=== PATIENT | male | born 1935 | race Caucasian/White ===

== ENCOUNTER 2021-01-28 10:49 | Inpatient (IN) | payer MEDICARE, BC ==
[~2021-01-28 10:49] MED LIST: Iopamidol-370 76% 500 ML 1 ML ONE
[2021-01-28] MEDS ORDERED: Cefepime 2 GM VIAL ONE (11:31)
[2021-01-28] MEDS ORDERED: Vancomycin 1 GM/200 ML BAG ONE (11:32)
[2021-01-28 11:42] LABS: ALT (SGPT) 22 U/L (8-55); AST (SGOT) 18 U/L (5-34); Albumin 4.2 g/dL (3.4-4.8); Alkaline Phosphatase 86 U/L (40-110); Anion Gap 19 mmol/L (10-20); BUN (Urea Nitrogen) 20 mg/dL (8.4-25.7); Bilirubin, Total 0.6 mg/dL (0.2-1.2); Calc. Creatinine Clearance 0 mL/min (70-130); Calcium 9.5 mg/dL (7.8-10.44); Carbon Dioxide 26 mmol/L (23-31); Chloride 101 mmol/L (98-107); Globulin 2.8 g/dL (2.4-3.5); Glucose 133 mg/dL (83-110); Sodium 142 mmol/L (136-145)
[2021-01-28 11:45] LABS: Band 21 % (5-11); Hemoglobin 12.9 g/dL (14.0-18.0); Lymphocytes 10 % (21-51); MDiff Complete? YES; Macrocytosis SLIGHT = 6-15 cells (100X) (0-5/hpf); Mean Corpuscular Hemoglobin 35.6 pg (27.0-31.0); Mean Platelet Volume 9.4 fL (7.4-10.4); Monocytes 6 % (0-10); Neutrophil 63 % (42-75); Platelet Count 140 thou/uL (130-400); RBC Distribution Width 13.9 % (11.5-14.5); Red Blood Cell (RBC) Count 3.61 mill/uL (4.70-6.10); White Blood Cell (WBC) Count 27.4 thou/uL (4.8-10.8)
[2021-01-28 11:46] LABS: Actual Bicarbonate (HCO3v) 29 mEq/L (22-28); Analyzer IN Cardio ER; Base Excess 3.3 mEq/L (-2.0 to +3.0); Calcium, Ionized (venous) 1.12 mmol/L (1.16-1.32); Chloride (VBG) 102 mmol/L (98-106); Hemoglobin (Hb) 12.8 g/dL (12.6-17.4); Potassium (VBG) 3.98 mmol/L (3.70-5.30); Sodium 140.5 mmol/L (133-146)
[2021-01-28] MEDS ORDERED: Ondansetron PF 4 MG/2 ML Vial ONE (11:49)
[2021-01-28] MEDS ORDERED: Aspirin Chewable 81 MG TAB ONE (11:49)
[2021-01-28 12:04] LABS: CKMB 3.3 ng/mL (0-6.6)
[2021-01-28 12:34] LABS: SARS-CoV-2 NAA Rapid Test Not Detected (NotDetected)
[2021-01-28 12:57] LABS: Actual Bicarbonate (HCO3v) 22 mEq/L (22-28); Analyzer IN Cardio ER; Base Excess -2.1 mEq/L (-2.0 to +3.0); Chloride (VBG) 106 mmol/L (98-106); Hemoglobin (Hb) 11.8 g/dL (12.6-17.4); Sodium 139.2 mmol/L (133-146)
[2021-01-28] MEDS ORDERED: Acetaminophen 325 MG TAB ONE (13:17)
[2021-01-28 14:56] LABS: Lactic Acid 2.6 mmol/L (0.5-2.2)
[2021-01-28 15:33] LABS: Bilirubin Negative (Negative); Blood, Urine Negative (Negative); Clarity Clear (Clear); Glucose, Urine (Dipstick) Normal (Negative); Ketone, Urine Negative (Negative); Leukocyte Negative Leu/uL (Negative); Nitrite Negative (Negative); Protein, Urine (Dipstick) Negative (Neg-Trace); Specific Gravity, Urine 1.043 (1.002-1.036); Urobilinogen Normal mg/dL (Less than 2)
[2021-01-28] MEDS ORDERED: Acetaminophen 325 MG TAB PO PRN (15:55)
[2021-01-28] MEDS ORDERED: Albuterol Sulfate 2.5 mg/3 ml Neb NEB PRN (15:55)
[2021-01-28] MEDS ORDERED: Ondansetron PF 4 MG/2 ML Vial IVP PRN (15:55)
[2021-01-28] MEDS ORDERED: Senokot S 8.6-50 MG TAB PO PRN (15:55)
[2021-01-28 17:05] LABS: Troponin I 0.185 ng/mL (< 0.028)
[2021-01-28] MEDS ORDERED: Vancomycin HCl 750 MG in Sodium Chloride 0.9% 250 ML 250 ML IVPB SCH (19:45)
[2021-01-28] MEDS: Sodium Chloride 0.9% 1,000 ML IV SCH (20:21)
[2021-01-28] MEDS: methylPREDNISolone Sod Succ 40 MG VIAL IVP SCH (20:35)
[2021-01-28] MEDS: Pregabalin 75 MG CAP PO SCH (20:35)
[2021-01-28 20:54] LABS: Troponin I 0.149 ng/mL (< 0.028)
[2021-01-28 22:09] VITALS: BMI 23.2
[2021-01-28] MEDS: Cefepime 2 GM in Sodium Chloride 0.9% 100 ML IVPB SCH (23:25)
[2021-01-29] MEDS: methylPREDNISolone Sod Succ 40 MG VIAL IVP SCH ×4 (01:10→21:24)
[2021-01-29 04:14] LABS: Lactic Acid 2.6 mmol/L (0.5-2.2)
[2021-01-29 04:17] LABS: Anion Gap 14 mmol/L (10-20); BUN (Urea Nitrogen) 17 mg/dL (8.4-25.7); Calc. Creatinine Clearance 70 mL/min (70-130); Calcium 8.4 mg/dL (7.8-10.44); Carbon Dioxide 22 mmol/L (23-31); Chloride 107 mmol/L (98-107); Glucose 187 mg/dL (83-110); Potassium 4.6 mmol/L (3.5-5.1); Sodium 138 mmol/L (136-145)
[2021-01-29] MEDS: Sodium Chloride 0.9% 1,000 ML IV SCH (06:04)
[2021-01-29] MEDS: Arformoterol 15 MCG/2 ML NEB NEB SCH ×3 (06:04→18:57)
[2021-01-29 06:40] LABS: Hemoglobin 9.7 g/dL (14.0-18.0); Mean Corpuscular Hemoglobin 36.2 pg (27.0-31.0); Mean Platelet Volume 9.7 fL (7.4-10.4); Platelet Count 88 thou/uL (130-400); RBC Distribution Width 13.6 % (11.5-14.5); Red Blood Cell (RBC) Count 2.68 mill/uL (4.70-6.10); White Blood Cell (WBC) Count 45.6 thou/uL (4.8-10.8)
[2021-01-29 08:18] LABS: Band 39 % (5-11); Lymphocytes 2 % (21-51); MDiff Complete? YES; Monocytes 4 % (0-10); Neutrophil 55 % (42-75); Platelet Morphology Comment Appears Decreased; Polychromasia SLIGHT = 2-3 cells (100X) (0-2/hpf)
[2021-01-29] MEDS: Pregabalin 75 MG CAP PO SCH ×2 (08:26→21:23)
[2021-01-29] MEDS: Enoxaparin Sodium 40 MG/0.4 ML SYRINGE SC SCH ×2 (08:26→09:10)
[2021-01-29] MEDS: Famotidine 20 MG TAB PO SCH (08:27)
[2021-01-29] MEDS: Cefepime 2 GM in Sodium Chloride 0.9% 100 ML IVPB SCH ×2 (12:17→23:08)
[2021-01-29] MEDS ORDERED: Vancomycin 1.5 GRAM/300 ML BAG 1.5 GM in Premix Bag 1 BAG IVPB SCH (14:00)
[2021-01-29] MEDS: Linezolid 600 MG in Premix Bag 1 BAG IVPB SCH (17:22)
[2021-01-29] MEDS: Mometasone 100 MCG/PUFF (1 INHALER) INH SCH (18:57)
[2021-01-29] MEDS: Mometasone 200 MCG/Formoterol 5 MCG 120 PUFF INHALER INH SCH (18:58)
[2021-01-29] MEDS: Sulfameth/Trimethoprim DS 800-160mg TAB PO SCH (21:24)
[2021-01-30] MEDS: Pregabalin 75 MG CAP PO SCH ×3 (00:39→20:49)
[2021-01-30] MEDS: Sodium Chloride 0.9% 1,000 ML IV SCH ×2 (01:03→12:36)
[2021-01-30] MEDS: methylPREDNISolone Sod Succ 40 MG VIAL IVP SCH ×4 (02:45→20:49)
[2021-01-30 04:06] LABS: Anion Gap 11 mmol/L (10-20); BUN (Urea Nitrogen) 17 mg/dL (8.4-25.7); Calc. Creatinine Clearance 74 mL/min (70-130); Calcium 8.2 mg/dL (7.8-10.44); Carbon Dioxide 24 mmol/L (23-31); Chloride 108 mmol/L (98-107); Glucose 251 mg/dL (83-110); Potassium 3.7 mmol/L (3.5-5.1); Sodium 139 mmol/L (136-145)
[2021-01-30 05:03] LABS: Band 20 % (5-11); Hemoglobin 9.2 g/dL (14.0-18.0); Lymphocytes 1 % (21-51); MDiff Complete? YES; Mean Corpuscular HGB CONC 33.1 g/dL (32.0-36.0); Mean Corpuscular Hemoglobin 35.4 pg (27.0-31.0); Mean Platelet Volume 9.9 fL (7.4-10.4); Monocytes 1 % (0-10); Neutrophil 78 % (42-75); Platelet Count 83 thou/uL (130-400); Platelet Morphology Comment Appears Decreased; RBC Distribution Width 13.6 % (11.5-14.5); Red Blood Cell (RBC) Count 2.59 mill/uL (4.70-6.10)
[2021-01-30] MEDS: Linezolid 600 MG in Premix Bag 1 BAG IVPB SCH ×2 (05:37→15:54)
[2021-01-30] MEDS: Arformoterol 15 MCG/2 ML NEB NEB SCH ×2 (08:27→18:20)
[2021-01-30] MEDS: Mometasone 100 MCG/PUFF (1 INHALER) INH SCH (08:29)
[2021-01-30] MEDS: Mometasone 200 MCG/Formoterol 5 MCG 120 PUFF INHALER INH SCH ×2 (08:29→18:21)
[2021-01-30] MEDS: Sulfameth/Trimethoprim DS 800-160mg TAB PO SCH ×2 (08:46→20:49)
[2021-01-30] MEDS: Fluconazole 100 MG TAB PO SCH (08:46)
[2021-01-30] MEDS: Famotidine 20 MG TAB PO SCH (08:47)
[2021-01-30] MEDS ORDERED: HumaLOG 300 UNITS/3 ML VIAL SC PRN (10:57)
[2021-01-30] MEDS ORDERED: Dextrose 50% Abboject 50 ML SYRINGE SLOW IVP PRN (10:57)
[2021-01-30] MEDS ORDERED: Dextrose 5% in Water 1,000 ML IV PRN (10:57)
[2021-01-30] MEDS: Cefepime 2 GM in Sodium Chloride 0.9% 100 ML IVPB SCH ×2 (11:36→22:25)
[2021-01-30] MEDS: Enoxaparin Sodium 40 MG/0.4 ML SYRINGE SC SCH (12:35)
[2021-01-31] MEDS: Sodium Chloride 0.9% 1,000 ML IV SCH ×2 (00:10→14:31)
[2021-01-31] MEDS: methylPREDNISolone Sod Succ 40 MG VIAL IVP SCH ×2 (00:50→09:53)
[2021-01-31] MEDS: Linezolid 600 MG in Premix Bag 1 BAG IVPB SCH ×2 (05:46→17:00)
[2021-01-31] MEDS: HumaLOG 300 UNITS/3 ML VIAL SC PRN (06:15)
[2021-01-31] MEDS: Mometasone 200 MCG/Formoterol 5 MCG 120 PUFF INHALER INH SCH ×2 (08:29→18:47)
[2021-01-31] MEDS: Arformoterol 15 MCG/2 ML NEB NEB SCH ×2 (08:29→18:46)
[2021-01-31 09:05] LABS: Hemoglobin 9.4 g/dL (14.0-18.0); Mean Corpuscular HGB CONC 33.8 g/dL (32.0-36.0); Mean Corpuscular Hemoglobin 35.7 pg (27.0-31.0); Platelet Count 85 thou/uL (130-400); RBC Distribution Width 13.9 % (11.5-14.5); Red Blood Cell (RBC) Count 2.62 mill/uL (4.70-6.10); White Blood Cell (WBC) Count 21.8 thou/uL (4.8-10.8)
[2021-01-31] MEDS: Sulfameth/Trimethoprim DS 800-160mg TAB PO SCH ×2 (09:51→20:26)
[2021-01-31] MEDS: Pregabalin 75 MG CAP PO SCH ×2 (09:51→20:26)
[2021-01-31] MEDS: Enoxaparin Sodium 40 MG/0.4 ML SYRINGE SC SCH (09:52)
[2021-01-31] MEDS: Fluconazole 100 MG TAB PO SCH (09:52)
[2021-01-31] MEDS: Cefepime 2 GM in Sodium Chloride 0.9% 100 ML IVPB SCH ×2 (10:04→23:10)
[2021-01-31 10:40] LABS: Band 36 % (5-11); Lymphocytes 6 % (21-51); Neutrophil 58 % (42-75)
[2021-01-31 10:43] LABS: Macrocytosis SLIGHT = 6-15 cells (100X) (0-5/hpf); Polychromasia SLIGHT = 2-3 cells (100X) (0-2/hpf); Vacuoles SLIGHT
[2021-01-31 10:44] LABS: Platelet Morphology Comment Appears Decreased
[2021-01-31 10:45] LABS: MDiff Complete? YES
[2021-01-31] MEDS: guaiFENesin ER 600 MG TAB PO SCH (20:27)
[2021-02-01] MEDS: Sodium Chloride 0.9% 1,000 ML IV SCH (03:32)
[2021-02-01] MEDS: Linezolid 600 MG in Premix Bag 1 BAG IVPB SCH (04:08)
[2021-02-01 04:42] LABS: Band 24 % (5-11); Hemoglobin 9.7 g/dL (14.0-18.0); Lymphocytes 4 % (21-51); MDiff Complete? YES; Mean Corpuscular HGB CONC 33.8 g/dL (32.0-36.0); Mean Corpuscular Hemoglobin 35.3 pg (27.0-31.0); Mean Platelet Volume 9.6 fL (7.4-10.4); Metamyelocyte 1 % (0-0); Monocytes 6 % (0-10); Myelocyte 4 % (0-0); Neutrophil 61 % (42-75); Platelet Count 86 thou/uL (130-400); Platelet Morphology Comment Appears Decreased; RBC Distribution Width 13.9 % (11.5-14.5); Red Blood Cell (RBC) Count 2.73 mill/uL (4.70-6.10)
[2021-02-01] MEDS: HumaLOG 300 UNITS/3 ML VIAL SC PRN (05:57)
[2021-02-01] MEDS ORDERED: predniSONE 20 MG TAB PO SCH (08:00)
[2021-02-01] MEDS: Arformoterol 15 MCG/2 ML NEB NEB SCH (09:08)
[2021-02-01] MEDS: Mometasone 200 MCG/Formoterol 5 MCG 120 PUFF INHALER INH SCH (09:09)
[2021-02-01] MEDS ORDERED: Saccharomyces boulardii 250 MG CAP ONE (09:18)
[2021-02-01] MEDS: Fluconazole 100 MG TAB PO SCH (09:52)
[2021-02-01] MEDS: Pregabalin 75 MG CAP PO SCH (09:52)
[2021-02-01] MEDS: Sulfameth/Trimethoprim DS 800-160mg TAB PO SCH (09:57)
[2021-02-01] MEDS: Enoxaparin Sodium 40 MG/0.4 ML SYRINGE SC SCH (09:57)
[2021-02-01] MEDS: guaiFENesin ER 600 MG TAB PO SCH (09:57)
[2021-02-01 12:12] VITALS: BP 133/105
[2021-02-01 12:13] VITALS: TEMP 97.3
[2021-02-02] MEDS ORDERED: Saccharomyces boulardii 250 MG CAP PO SCH (09:00)
== END 2021-02-01 17:49 | disposition home health service (06) | DRG 871 ==
LOC: ERS 10:49 → IMCU/EMU 15:13
PROVIDERS: ADMIT Family Medicine; ATTEND Internal Medicine
PROC: 5A09357 Assistance with Respiratory Ventilation, Less than 24 Consecutive Hours, Continuous Positive Airway Pressure (ICD-10-PCS; principal; 2021-01-28)
DX: A41.9 Sepsis, unspecified organism (principal); J18.9 Pneumonia, unspecified organism; J96.21 Acute and chronic respiratory failure with hypoxia; J44.0 Chronic obstructive pulmonary disease with (acute) lower respiratory infection; J44.1 Chronic obstructive pulmonary disease with (acute) exacerbation; I10 Essential (primary) hypertension; J20.9 Acute bronchitis, unspecified; D64.9 Anemia, unspecified; B37.9 Candidiasis, unspecified; I95.9 Hypotension, unspecified; N20.0 Calculus of kidney; K76.89 Other specified diseases of liver; Z20.822 Contact with and (suspected) exposure to COVID-19; R73.02 Impaired glucose tolerance (oral); R53.81 Other malaise; G62.9 Polyneuropathy, unspecified; Z79.899 Other long term (current) drug therapy; Z87.891 Personal history of nicotine dependence
CPT/HCPCS: 0240U; 36415; 36416; 71045; 71275; 74177; 80048; 80053; 81003; 82553; 82805; 83605; 83880; 84443; 84484; 85025; 87040; 87070; 87116; 87205; 87206; 87633; 87798; 87899; 93005; 93306; 94640; 94660; 96365; 96375; J0692; J1650; J1815; J2020; J2405; J2920; J3370; J3490; J7050; J7512; J7620; Q9967

== ENCOUNTER 2021-02-12 09:30 | Inpatient (IN) | payer MEDICARE, BC ==
[2021-02-12] MEDS ORDERED: Dexamethasone 10 MG/ML VIAL ONE (10:13)
[2021-02-12] MEDS ORDERED: Aspirin Chewable 81 MG TAB ONE (10:13)
[2021-02-12 10:33] LABS: Hemoglobin 10.3 g/dL (14.0-18.0); Mean Corpuscular HGB CONC 32.9 g/dL (32.0-36.0); Mean Corpuscular Hemoglobin 34.5 pg (27.0-31.0); Mean Platelet Volume 9.6 fL (7.4-10.4); Platelet Count 149 thou/uL (130-400); RBC Distribution Width 14.2 % (11.5-14.5); Red Blood Cell (RBC) Count 2.99 mill/uL (4.70-6.10); White Blood Cell (WBC) Count 7.3 thou/uL (4.8-10.8)
[2021-02-12 10:55] LABS: ALT (SGPT) 22 U/L (8-55); AST (SGOT) 19 U/L (5-34); Albumin 3.7 g/dL (3.4-4.8); Alkaline Phosphatase 69 U/L (40-110); Anion Gap 14 mmol/L (10-20); BUN (Urea Nitrogen) 18 mg/dL (8.4-25.7); Bilirubin, Total 0.4 mg/dL (0.2-1.2); CK (CPK) 28 U/L (30-200); Calc. Creatinine Clearance 0 mL/min (70-130); Calcium 9.3 mg/dL (7.8-10.44); Carbon Dioxide 26 mmol/L (23-31); Chloride 98 mmol/L (98-107); Globulin 2.9 g/dL (2.4-3.5); Glucose 151 mg/dL (83-110); Lipase 26 U/L (8-78); Potassium 3.8 mmol/L (3.5-5.1); Protein, Total 6.6 g/dL (5.8-8.1); Sodium 134 mmol/L (136-145)
[2021-02-12 11:09] LABS: CKMB 2.1 ng/mL (0-6.6)
[2021-02-12 11:16] LABS: Band 16 % (5-11); Lymphocytes 11 % (21-51); MDiff Complete? YES; Macrocytosis SLIGHT = 6-15 cells (100X) (0-5/hpf); Metamyelocyte 2 % (0-0); Monocytes 35 % (0-10); Myelocyte 10 % (0-0); Neutrophil 26 % (42-75); Platelet Morphology Comment Appears Adequate; Polychromasia SLIGHT = 2-3 cells (100X) (0-2/hpf)
[2021-02-12] MEDS ORDERED: REMDESIVIR 200 MG in Sodium Chloride 0.9% 250 ML 210 ML IV SCH (13:00)
[2021-02-12] MEDS ORDERED: Iopamidol-370 76% 500 ML 1 ML ONE (13:43)
[2021-02-12] MEDS ORDERED: Enoxaparin Sodium 40 MG/0.4 ML SYRINGE SC SCH (13:45)
[2021-02-12] MEDS ORDERED: Sulfameth/Trimethoprim DS 800-160mg TAB PO SCH (13:45)
[2021-02-12] MEDS ORDERED: Sulfameth/Trimethoprim DS 800-160mg TAB ONE ×2 (15:33→21:13)
[2021-02-12] MEDS ORDERED: Enoxaparin Sodium 40 MG/0.4 ML SYRINGE ONE (15:34)
[2021-02-12] MEDS ORDERED: Cefepime 2 GM VIAL ONE (15:34)
[2021-02-12] MEDS ORDERED: Vancomycin 1 GM/200 ML BAG ONE (15:34)
[2021-02-12] MEDS: Cefepime 2 GM in Sodium Chloride 0.9% 100 ML IVPB SCH (15:54)
[2021-02-12] MEDS: Vancomycin 1 GM in Premix Bag 1 BAG IVPB SCH (17:30)
[2021-02-12 17:58] LABS: CKMB 2.6 ng/mL (0-6.6)
[2021-02-12 21:34] LABS: Troponin I 0.025 ng/mL (< 0.028)
[2021-02-12] MEDS: Pregabalin 75 MG CAP PO SCH (22:11)
[2021-02-12] MEDS: Sulfameth/Trimethoprim DS 800-160mg TAB PO SCH (22:13)
[2021-02-13 00:52] LABS: CKMB 2.7 ng/mL (0-6.6)
[2021-02-13] MEDS: Albuterol 200 PUFF (6.7GM INHALER) INH SCH ×4 (02:58→20:09)
[2021-02-13] MEDS: Cefepime 2 GM in Sodium Chloride 0.9% 100 ML IVPB SCH ×2 (02:59→16:56)
[2021-02-13] MEDS: Mometasone 100 MCG/PUFF (1 INHALER) INH SCH ×3 (02:59→20:10)
[2021-02-13] MEDS ORDERED: Cefepime 2 GM VIAL ONE (03:07)
[2021-02-13] MEDS: Vancomycin 1 GM in Premix Bag 1 BAG IVPB SCH ×2 (04:36→16:56)
[2021-02-13] MEDS ORDERED: Vancomycin 1 GM/200 ML BAG ONE (04:43)
[2021-02-13] MEDS: Sulfameth/Trimethoprim DS 800-160mg TAB PO SCH (07:29)
[2021-02-13] MEDS: Pregabalin 75 MG CAP PO SCH ×2 (07:29→20:10)
[2021-02-13] MEDS: Enoxaparin Sodium 40 MG/0.4 ML SYRINGE SC SCH (07:30)
[2021-02-13] MEDS ORDERED: Pantoprazole 40 MG VIAL IVP SCH (09:00)
[2021-02-13] MEDS: Dexamethasone 10 MG in Sodium Chloride 0.9% 50 ML IVPB SCH ×2 (09:36→11:09)
[2021-02-13] MEDS ORDERED: REMDESIVIR 100 MG in Sodium Chloride 0.9% 250 ML 230 ML IV SCH (13:00)
[2021-02-13 14:52] LABS: Vancomycin, Trough 11.7 ug/mL
[2021-02-14] MEDS: Cefepime 2 GM in Sodium Chloride 0.9% 100 ML IVPB SCH (02:48)
[2021-02-14] MEDS: Albuterol 200 PUFF (6.7GM INHALER) INH SCH ×4 (02:48→20:02)
[2021-02-14] MEDS: Vancomycin 1 GM in Premix Bag 1 BAG IVPB SCH (03:40)
[2021-02-14] MEDS: Mometasone 100 MCG/PUFF (1 INHALER) INH SCH ×2 (06:51→18:21)
[2021-02-14] MEDS: predniSONE 20 MG TAB PO SCH (08:38)
[2021-02-14] MEDS: Pregabalin 75 MG CAP PO SCH ×2 (08:39→20:02)
[2021-02-14] MEDS: Enoxaparin Sodium 40 MG/0.4 ML SYRINGE SC SCH (08:39)
[2021-02-14] MEDS: Famotidine 20 MG TAB PO SCH ×2 (10:41→20:02)
[2021-02-15] MEDS: Albuterol 200 PUFF (6.7GM INHALER) INH SCH ×4 (01:06→20:13)
[2021-02-15] MEDS: Mometasone 100 MCG/PUFF (1 INHALER) INH SCH ×2 (05:34→20:13)
[2021-02-15] MEDS: Enoxaparin Sodium 40 MG/0.4 ML SYRINGE SC SCH (09:56)
[2021-02-15] MEDS: predniSONE 20 MG TAB PO SCH (09:56)
[2021-02-15] MEDS: Famotidine 20 MG TAB PO SCH ×2 (09:56→20:14)
[2021-02-15] MEDS: Pregabalin 75 MG CAP PO SCH ×2 (09:56→20:14)
[2021-02-16] MEDS: Albuterol 200 PUFF (6.7GM INHALER) INH SCH ×4 (02:42→20:18)
[2021-02-16] MEDS: Mometasone 100 MCG/PUFF (1 INHALER) INH SCH ×2 (06:30→17:12)
[2021-02-16 09:34] LABS: Hemoglobin 8.9 g/dL (14.0-18.0); Mean Corpuscular HGB CONC 33.8 g/dL (32.0-36.0); Mean Corpuscular Hemoglobin 35.3 pg (27.0-31.0); Mean Platelet Volume 9.1 fL (7.4-10.4); Platelet Count 140 thou/uL (130-400); RBC Distribution Width 14.2 % (11.5-14.5); Red Blood Cell (RBC) Count 2.54 mill/uL (4.70-6.10); White Blood Cell (WBC) Count 8.4 thou/uL (4.8-10.8)
[2021-02-16 09:51] LABS: Band 16 % (5-11); Lymphocytes 4 % (21-51); MDiff Complete? YES; Macrocytosis SLIGHT = 6-15 cells (100X) (0-5/hpf); Metamyelocyte 5 % (0-0); Monocytes 24 % (0-10); Myelocyte 4 % (0-0); Neutrophil 47 % (42-75); Platelet Morphology Comment Appears Adequate
[2021-02-16 09:53] LABS: ALT (SGPT) 15 U/L (8-55); AST (SGOT) 13 U/L (5-34); Albumin 3.4 g/dL (3.4-4.8); Alkaline Phosphatase 71 U/L (40-110); Anion Gap 13 mmol/L (10-20); BUN (Urea Nitrogen) 24 mg/dL (8.4-25.7); Bilirubin, Total 0.5 mg/dL (0.2-1.2); CRP (Inflammatory) 14.08 mg/dL (= or < 0.5); Calc. Creatinine Clearance 49 mL/min (70-130); Calcium 9.4 mg/dL (7.8-10.44); Carbon Dioxide 29 mmol/L (23-31); Chloride 98 mmol/L (98-107); Globulin 2.8 g/dL (2.4-3.5); Glucose 131 mg/dL (83-110); Potassium 3.8 mmol/L (3.5-5.1); Protein, Total 6.2 g/dL (5.8-8.1); Sodium 136 mmol/L (136-145)
[2021-02-16] MEDS: Enoxaparin Sodium 40 MG/0.4 ML SYRINGE SC SCH (09:53)
[2021-02-16] MEDS: Famotidine 20 MG TAB PO SCH ×2 (09:53→20:17)
[2021-02-16] MEDS: Pregabalin 75 MG CAP PO SCH ×2 (09:53→20:18)
[2021-02-16] MEDS: Colchicine 0.6 MG TAB PO SCH ×2 (09:53→20:18)
[2021-02-16] MEDS: predniSONE 20 MG TAB PO SCH ×3 (09:53→20:17)
[2021-02-17] MEDS: Albuterol 200 PUFF (6.7GM INHALER) INH SCH ×4 (02:21→20:27)
[2021-02-17] MEDS: Mometasone 100 MCG/PUFF (1 INHALER) INH SCH ×2 (05:36→20:27)
[2021-02-17] MEDS ORDERED: Fluconazole In NaCl,Iso-Osm 200 MG in Premix Bag 1 BAG IVPB SCH (07:30)
[2021-02-17] MEDS: Pregabalin 75 MG CAP PO SCH ×2 (09:25→20:29)
[2021-02-17] MEDS: Famotidine 20 MG TAB PO SCH ×2 (09:25→20:29)
[2021-02-17] MEDS: Enoxaparin Sodium 40 MG/0.4 ML SYRINGE SC SCH (09:25)
[2021-02-17] MEDS: Colchicine 0.6 MG TAB PO SCH ×2 (09:26→20:29)
[2021-02-17] MEDS: predniSONE 20 MG TAB PO SCH ×2 (09:26→20:30)
[2021-02-18] MEDS: Albuterol 200 PUFF (6.7GM INHALER) INH SCH ×4 (02:28→18:46)
[2021-02-18] MEDS: Mometasone 100 MCG/PUFF (1 INHALER) INH SCH ×2 (05:54→18:45)
[2021-02-18] MEDS: Enoxaparin Sodium 40 MG/0.4 ML SYRINGE SC SCH (09:46)
[2021-02-18] MEDS: Colchicine 0.6 MG TAB PO SCH ×2 (09:47→20:29)
[2021-02-18] MEDS: Fluconazole In NaCl,Iso-Osm 100 MG in Admixture Fee 2 EACH IVPB SCH (09:47)
[2021-02-18] MEDS: Famotidine 20 MG TAB PO SCH ×2 (09:47→20:30)
[2021-02-18] MEDS: Pregabalin 75 MG CAP PO SCH ×2 (09:47→20:29)
[2021-02-18] MEDS: predniSONE 20 MG TAB PO SCH ×2 (09:47→20:30)
[2021-02-19] MEDS: Mometasone 100 MCG/PUFF (1 INHALER) INH SCH ×2 (07:10→18:05)
[2021-02-19] MEDS: Albuterol 200 PUFF (6.7GM INHALER) INH SCH ×4 (07:28→18:05)
[2021-02-19] MEDS: Colchicine 0.6 MG TAB PO SCH ×2 (10:17→20:23)
[2021-02-19] MEDS: Famotidine 20 MG TAB PO SCH (10:18)
[2021-02-19] MEDS: predniSONE 20 MG TAB PO SCH ×2 (10:18→20:24)
[2021-02-19] MEDS: Fluconazole In NaCl,Iso-Osm 100 MG in Admixture Fee 2 EACH IVPB SCH (10:19)
[2021-02-19] MEDS: Pregabalin 75 MG CAP PO SCH ×2 (10:19→20:24)
[2021-02-19] MEDS: Enoxaparin Sodium 40 MG/0.4 ML SYRINGE SC SCH ×2 (10:19→20:24)
[2021-02-19] MEDS ORDERED: Iopamidol-370 76% 500 ML 1 ML ONE (10:55)
[2021-02-20] MEDS: Albuterol 200 PUFF (6.7GM INHALER) INH SCH ×2 (07:42)
[2021-02-20] MEDS: Mometasone 100 MCG/PUFF (1 INHALER) INH SCH ×2 (07:42→19:49)
[2021-02-20] MEDS: Fluconazole In NaCl,Iso-Osm 100 MG in Admixture Fee 2 EACH IVPB SCH (09:32)
[2021-02-20] MEDS: Colchicine 0.6 MG TAB PO SCH ×2 (09:32→20:27)
[2021-02-20] MEDS: Pregabalin 75 MG CAP PO SCH ×2 (09:32→20:27)
[2021-02-20] MEDS: Enoxaparin Sodium 40 MG/0.4 ML SYRINGE SC SCH ×2 (09:32→20:27)
[2021-02-20] MEDS: predniSONE 20 MG TAB PO SCH ×2 (09:33→20:26)
[2021-02-20] MEDS: Famotidine 20 MG TAB PO SCH (09:33)
[2021-02-21 04:21] LABS: ALT (SGPT) 24 U/L (8-55); AST (SGOT) 20 U/L (5-34); Albumin 3.1 g/dL (3.4-4.8); Alkaline Phosphatase 77 U/L (40-110); Anion Gap 13 mmol/L (10-20); BUN (Urea Nitrogen) 28 mg/dL (8.4-25.7); Bilirubin, Total 0.5 mg/dL (0.2-1.2); CRP (Inflammatory) 1.14 mg/dL (= or < 0.5); Calc. Creatinine Clearance 60 mL/min (70-130); Calcium 8.4 mg/dL (7.8-10.44); Carbon Dioxide 26 mmol/L (23-31); Chloride 99 mmol/L (98-107); Globulin 2.3 g/dL (2.4-3.5); Glucose 173 mg/dL (83-110); Potassium 3.8 mmol/L (3.5-5.1); Protein, Total 5.4 g/dL (5.8-8.1); Sodium 134 mmol/L (136-145)
[2021-02-21 04:38] LABS: Band 4 % (5-11); Hemoglobin 8.7 g/dL (14.0-18.0); Lymphocytes 5 % (21-51); MDiff Complete? YES; Macrocytosis SLIGHT = 6-15 cells (100X) (0-5/hpf); Mean Corpuscular HGB CONC 33.7 g/dL (32.0-36.0); Mean Corpuscular Hemoglobin 35.2 pg (27.0-31.0); Metamyelocyte 9 % (0-0); Monocytes 11 % (0-10); Myelocyte 7 % (0-0); Neutrophil 63 % (42-75); Platelet Count 168 thou/uL (130-400); Platelet Morphology Comment Appears Adequate; Polychromasia SLIGHT = 2-3 cells (100X) (0-2/hpf); RBC Distribution Width 14.6 % (11.5-14.5); Reactive Lymphocytes 1 % (0-10); Red Blood Cell (RBC) Count 2.48 mill/uL (4.70-6.10); Tear Drops SLIGHT = 2-5 cells (100X) (0-1/hpf); White Blood Cell (WBC) Count 11.9 thou/uL (4.8-10.8)
[2021-02-21] MEDS: Famotidine 20 MG TAB PO SCH (08:29)
[2021-02-21] MEDS: Enoxaparin Sodium 40 MG/0.4 ML SYRINGE SC SCH ×2 (08:29→19:34)
[2021-02-21] MEDS: Colchicine 0.6 MG TAB PO SCH ×2 (08:29→19:34)
[2021-02-21] MEDS: Pregabalin 75 MG CAP PO SCH ×2 (08:30→19:33)
[2021-02-21] MEDS: predniSONE 20 MG TAB PO SCH ×2 (08:30→19:33)
[2021-02-21] MEDS: Mometasone 100 MCG/PUFF (1 INHALER) INH SCH ×2 (08:45→18:28)
[2021-02-21] MEDS: Fluconazole In NaCl,Iso-Osm 100 MG in Admixture Fee 2 EACH IVPB SCH (10:18)
[2021-02-22] MEDS: Mometasone 100 MCG/PUFF (1 INHALER) INH SCH ×2 (08:05→21:42)
[2021-02-22] MEDS: Enoxaparin Sodium 40 MG/0.4 ML SYRINGE SC SCH ×3 (09:10→21:41)
[2021-02-22] MEDS: Colchicine 0.6 MG TAB PO SCH (09:11)
[2021-02-22] MEDS: Pregabalin 75 MG CAP PO SCH ×2 (09:11→21:37)
[2021-02-22] MEDS: predniSONE 20 MG TAB PO SCH ×2 (09:11→21:37)
[2021-02-22] MEDS: Famotidine 20 MG TAB PO SCH (09:11)
[2021-02-22 11:32] VITALS: BMI 21.2
[2021-02-23] MEDS: Mometasone 100 MCG/PUFF (1 INHALER) INH SCH ×2 (08:00→19:42)
[2021-02-23] MEDS: predniSONE 20 MG TAB PO SCH ×2 (08:18→20:29)
[2021-02-23] MEDS: Pregabalin 75 MG CAP PO SCH ×2 (08:18→20:31)
[2021-02-23] MEDS: Enoxaparin Sodium 40 MG/0.4 ML SYRINGE SC SCH ×2 (08:19→20:32)
[2021-02-24 04:32] LABS: Magnesium 1.9 mg/dL (1.6-2.6); Phosphorus 2.7 mg/dL (2.3-4.7)
[2021-02-24 05:47] LABS: Band 9 % (5-11); Eosinophils 1 % (0-10); Hemoglobin 8.8 g/dL (14.0-18.0); Lymphocytes 9 % (21-51); MDiff Complete? YES; Mean Corpuscular HGB CONC 34.3 g/dL (32.0-36.0); Mean Corpuscular Hemoglobin 35.5 pg (27.0-31.0); Mean Platelet Volume 9.5 fL (7.4-10.4); Monocytes 5 % (0-10); Myelocyte 1 % (0-0); Neutrophil 75 % (42-75); Platelet Count 139 thou/uL (130-400); RBC Distribution Width 15.6 % (11.5-14.5); Red Blood Cell (RBC) Count 2.48 mill/uL (4.70-6.10); White Blood Cell (WBC) Count 15.1 thou/uL (4.8-10.8)
[2021-02-24] MEDS: Pregabalin 75 MG CAP PO SCH ×2 (08:06→20:17)
[2021-02-24] MEDS: predniSONE 20 MG TAB PO SCH ×2 (08:07→20:17)
[2021-02-24] MEDS: Enoxaparin Sodium 40 MG/0.4 ML SYRINGE SC SCH ×2 (08:08→20:17)
[2021-02-24] MEDS: Mometasone 100 MCG/PUFF (1 INHALER) INH SCH ×2 (08:50→19:36)
[2021-02-24] MEDS ORDERED: Morphine 2 MG/ML VIAL SLOW IVP SCH (11:00)
[2021-02-24] MEDS ORDERED: Morphine 4 MG/ML VIAL ONE (11:28)
[2021-02-24] MEDS: Lorazepam 2 MG/ML VIAL ONE ×2 (11:31→11:33)
[2021-02-24] MEDS ORDERED: Lidocaine 1% (PF) 30 ML VIAL ONE (11:39)
[2021-02-24] MEDS ORDERED: Morphine 4 MG/ML VIAL SLOW IVP SCH (11:45)
[2021-02-24] MEDS ORDERED: Lorazepam 2 MG/ML VIAL SLOW IVP SCH (11:45)
[2021-02-25 04:40] LABS: Hemoglobin 8.4 g/dL (14.0-18.0); Mean Corpuscular HGB CONC 34.7 g/dL (32.0-36.0); Mean Corpuscular Hemoglobin 35.9 pg (27.0-31.0); Mean Platelet Volume 10.1 fL (7.4-10.4); Platelet Count 121 thou/uL (130-400); RBC Distribution Width 15.4 % (11.5-14.5); Red Blood Cell (RBC) Count 2.34 mill/uL (4.70-6.10); White Blood Cell (WBC) Count 13.9 thou/uL (4.8-10.8)
[2021-02-25 04:41] LABS: Anion Gap 12 mmol/L (10-20); BUN (Urea Nitrogen) 29 mg/dL (8.4-25.7); Calc. Creatinine Clearance 69 mL/min (70-130); Calcium 8.4 mg/dL (7.8-10.44); Carbon Dioxide 27 mmol/L (23-31); Chloride 100 mmol/L (98-107); Glucose 172 mg/dL (83-110); Phosphorus 3.2 mg/dL (2.3-4.7); Potassium 3.9 mmol/L (3.5-5.1); Sodium 135 mmol/L (136-145)
[2021-02-25 06:28] LABS: Band 14 % (5-11); Lymphocytes 2 % (21-51); MDiff Complete? YES; Metamyelocyte 5 % (0-0); Monocytes 11 % (0-10); Neutrophil 67 % (42-75); Platelet Morphology Comment Appears Decreased; Polychromasia SLIGHT = 2-3 cells (100X) (0-2/hpf); Reactive Lymphocytes 1 % (0-10)
[2021-02-25] MEDS: Pregabalin 75 MG CAP PO SCH ×2 (07:47→20:55)
[2021-02-25] MEDS: Carvedilol 6.25 MG TAB PO SCH ×2 (07:48→17:30)
[2021-02-25] MEDS: Enoxaparin Sodium 40 MG/0.4 ML SYRINGE SC SCH ×2 (07:48→20:55)
[2021-02-25] MEDS: Morphine 2 MG/ML VIAL SLOW IVP PRN (07:49)
[2021-02-25] MEDS ORDERED: predniSONE 20 MG TAB PO SCH (08:00)
[2021-02-25] MEDS: Mometasone 100 MCG/PUFF (1 INHALER) INH SCH ×2 (08:01→21:04)
[2021-02-25] MEDS ORDERED: Lisinopril 5 MG TAB PO SCH (09:00)
[2021-02-25 09:30] LABS: Anion Gap 14 mmol/L (10-20); BUN (Urea Nitrogen) 32 mg/dL (8.4-25.7); Calc. Creatinine Clearance 59 mL/min (70-130); Calcium 8.5 mg/dL (7.8-10.44); Carbon Dioxide 26 mmol/L (23-31); Chloride 98 mmol/L (98-107); Glucose 207 mg/dL (83-110); Potassium 4.1 mmol/L (3.5-5.1); Sodium 134 mmol/L (136-145)
[2021-02-25] MEDS ORDERED: DOPamine 400 MG/D5W 250 ML 250 ML IVPB SCH (11:45)
[2021-02-25] MEDS ORDERED: traMADol HCl 50 MG TAB PO PRN (12:38)
[2021-02-25] MEDS ORDERED: Ibuprofen 200 MG TAB PO PRN (12:39)
[2021-02-25 20:36] VITALS: BP 94/58
[2021-02-25] MEDS: Arformoterol 15 MCG/2 ML NEB NEB SCH (21:03)
[2021-02-25] MEDS: Budesonide 0.5 MG/2 ML NEB NEB SCH (21:03)
[2021-02-26] MEDS: Morphine 2 MG/ML VIAL SLOW IVP PRN (02:30)
[2021-02-26 04:12] VITALS: TEMP 97
[2021-02-26 04:29] LABS: Hemoglobin 8.5 g/dL (14.0-18.0); Mean Corpuscular HGB CONC 34.1 g/dL (32.0-36.0); Mean Corpuscular Hemoglobin 35.4 pg (27.0-31.0); Mean Platelet Volume 10.3 fL (7.4-10.4); Platelet Count 134 thou/uL (130-400); RBC Distribution Width 15.8 % (11.5-14.5); Red Blood Cell (RBC) Count 2.39 mill/uL (4.70-6.10); White Blood Cell (WBC) Count 27.2 thou/uL (4.8-10.8)
[2021-02-26 04:52] LABS: Anion Gap 16 mmol/L (10-20); BUN (Urea Nitrogen) 50 mg/dL (8.4-25.7); Calc. Creatinine Clearance 45 mL/min (70-130); Calcium 8.9 mg/dL (7.8-10.44); Carbon Dioxide 24 mmol/L (23-31); Chloride 99 mmol/L (98-107); Glucose 153 mg/dL (83-110); Potassium 4.4 mmol/L (3.5-5.1); Sodium 135 mmol/L (136-145)
[2021-02-26 04:58] LABS: Band 11 % (5-11); Lymphocytes 5 % (21-51); MDiff Complete? YES; Monocytes 7 % (0-10); Myelocyte 1 % (0-0); Neutrophil 76 % (42-75)
[2021-02-26] MEDS ORDERED: Morphine 4 MG/ML VIAL SLOW IVP SCH (05:00)
[2021-02-26] MEDS ORDERED: GUAIFENESIN SF SOLN 200 MG/10 ML UDCUP PO PRN (07:04)
[2021-02-26] MEDS ORDERED: Senokot S 8.6-50 MG TAB PO PRN (07:04)
[2021-02-26] MEDS ORDERED: Artificial Tear Sol 15 ML BOT EA EYE PRN (07:04)
[2021-02-26] MEDS ORDERED: Calcium Carbonate 500 MG ChewTAB PO PRN (07:04)
[2021-02-26] MEDS ORDERED: Benzonatate 100 MG CAP PO PRN (07:04)
[2021-02-26] MEDS ORDERED: Bisacodyl 5 MG TAB PO PRN (07:04)
[2021-02-26] MEDS ORDERED: Hydrocerin (Eucerin) Cream 120 gm Jar TOP PRN (07:04)
[2021-02-26] MEDS ORDERED: Loperamide HCl 2 MG CAP PO PRN (07:04)
[2021-02-26] MEDS ORDERED: Cepastat Lozenges 1 LOZ PO PRN (07:04)
[2021-02-26] MEDS ORDERED: Sodium Chloride 0.65% Nasal 44 ML BOT EA NARE PRN (07:04)
[2021-02-26] MEDS ORDERED: Ondansetron ODT 4 MG TAB PO PRN (07:04)
[2021-02-26] MEDS ORDERED: Ondansetron PF 4 MG/2 ML Vial IVP PRN (07:04)
[2021-02-26] MEDS ORDERED: Loratadine 10 MG TAB PO PRN (07:04)
[2021-02-26] MEDS: Arformoterol 15 MCG/2 ML NEB NEB SCH (07:32)
[2021-02-26] MEDS: Budesonide 0.5 MG/2 ML NEB NEB SCH (07:33)
[2021-02-26] MEDS: Mometasone 100 MCG/PUFF (1 INHALER) INH SCH (07:34)
== END 2021-02-26 06:28 | disposition expired | DRG 871 ==
LOC: ERS 09:30 → ERHOLD 11:24 → IMCU/EMU 02-13 05:32
PROVIDERS: ADMIT Internal Medicine; ATTEND Internal Medicine
PROC: XW033E5 Introduction of Remdesivir Anti-infective into Peripheral Vein, Percutaneous Approach, New Technology Group 5 (ICD-10-PCS; principal; 2021-02-12)
PROC: 8E0ZXY6 Isolation (ICD-10-PCS; 2021-02-12)
PROC: 0W9900Z Drainage of Right Pleural Cavity with Drainage Device, Open Approach (ICD-10-PCS; 2021-02-24)
DX: A41.89 Other specified sepsis (principal); U07.1 COVID-19; J96.21 Acute and chronic respiratory failure with hypoxia; J12.82 Pneumonia due to coronavirus disease 2019; I50.41 Acute combined systolic (congestive) and diastolic (congestive) heart failure; J93.0 Spontaneous tension pneumothorax; J44.1 Chronic obstructive pulmonary disease with (acute) exacerbation; I42.9 Cardiomyopathy, unspecified; Z66 Do not resuscitate; R91.1 Solitary pulmonary nodule; D64.9 Anemia, unspecified; R79.89 Other specified abnormal findings of blood chemistry; I11.0 Hypertensive heart disease with heart failure; G62.9 Polyneuropathy, unspecified; I46.9 Cardiac arrest, cause unspecified; I95.9 Hypotension, unspecified; Z85.828 Personal history of other malignant neoplasm of skin; Z98.890 Other specified postprocedural states; Z87.891 Personal history of nicotine dependence; Z80.8 Family history of malignant neoplasm of other organs or systems; Z83.6 Family history of other diseases of the respiratory system; Z98.52 Vasectomy status
CPT/HCPCS: 36415; 71045; 71275; 80048; 80053; 80202; 82550; 82553; 83690; 83735; 83880; 84100; 84484; 85025; 85060; 85379; 86140; 87070; 87205; 93005; 93306; 94640; 96374; C9113; J0692; J1100; J1265; J1450; J1650; J2060; J2270; J3370; J3490; J7512; J7620; J7626; Q9967